=== PATIENT | male | born 1975 | race African-American/Black ===

== ENCOUNTER 2022-05-20 13:35 | Inpatient (IN) | payer BC ==
[~2022-05-20] VITALS: Ht 172.7 cm; Wt 94.8 kg
[~2022-05-20 13:35] MED LIST: LEVETIRACETAM (500MG) 1,000 MG in IV NS 0.9% 100 ML IV SCH
--- NOTE | 2022-05-20 14:06 | NUR ---
CALLED CODE STROKE
--- NOTE | 2022-05-20 14:09 | NUR ---
ACCUCHECK BLOOD SUGAR = 114
--- NOTE | 2022-05-20 14:09 | NUR ---
ESTABLISHED IV LINE LEFT AC 18G
--- NOTE | 2022-05-20 14:10 | NUR ---
PT TO CT VIA ACLS PROTOCALS.
--- NOTE | 2022-05-20 14:10 | NUR ---
PT TAKEN TO CT VIA ROCCO
[2022-05-20] MEDS ORDERED: LORAZEPAM INJ 2 MG/ML VIAL ONE (14:14)
[2022-05-20 14:15] LABS: BASOPHILS % (AUTO) 0.5 % (0.0-2.0); EOSINOPHILS % (AUTO) 0.7 % (0.0-6.0); HEMATOCRIT 35 % (39-51); HEMOGLOBIN 11.5 g/dL (13.5-17.5); LYMPHOCYTES # (AUTO) 0.3 K/uL (0.8-4.8); LYMPHOCYTES % (AUTO) 7.1 % (20.0-44.0); MEAN CORPUSCULAR HGB CONC 33 g/dl (31.0-36.0); MEAN CORPUSCULAR VOLUME 104 fL (80-96); MONOCYTES # (AUTO) 0.2 K/uL (0.1-1.30); MONOCYTES % (AUTO) 3.9 % (2.0-12.0); NEUTROPHILS # (AUTO) 3.6 K/uL (1.8-8.9); NEUTROPHILS % (AUTO) 87.8 % (43.0-81.0); PLATELET COUNT (AUTO) 212 K/uL (150-450); RED BLOOD CELL COUNT(AUTO) 3.34 MIL/uL (4.5-6.0); WHITE BLOOD COUNT (AUTO) 4.1 K/uL (4.3-11.0)
[2022-05-20 14:24] LABS: CALCIUM, SERUM 9.3 mg/dL (8.5-10.1); CARBON DIOXIDE 27 mmol/L (21-32); CHLORIDE 93 mmol/L (98-107); CREATININE 1.4 mg/dL (0.6-1.3); GLUCOSE 122 mg/dL (74-106); POTASSIUM 3.9 mmol/L (3.5-5.1); SODIUM SERUM 132 mmol/L (136-145); UREA NITROGEN, BLOOD 15 mg/dL (7-18)
--- NOTE | 2022-05-20 14:25 | NUR ---
CALLED [facility] [phone] Vianney ARROYO
[2022-05-20] MEDS ORDERED: PANT40TA2 PO (14:29)
[2022-05-20] MEDS ORDERED: IV CHEMO IV (14:29)
[2022-05-20] MEDS ORDERED: LEVO25TA7 PO (14:29)
[2022-05-20] MEDS ORDERED: APIX5TAB PO (14:29)
[2022-05-20] MEDS ORDERED: DEXA1TAB PO (14:29)
[2022-05-20] MEDS ORDERED: SULF1TAB48 PO (14:29)
[2022-05-20] MEDS ORDERED: LORAZEPAM INJ 2 MG/ML VIAL IV ONE (14:30)
[2022-05-20] MEDS ORDERED: LEVETIRACETAM (500MG) 1,000 MG in IV NS 0.9% 100 ML IV SCH (14:30)
--- NOTE | 2022-05-20 14:30 | NUR ---
DR. ARROYO SPEAKING WITH DR. ZARAGOZA.
[2022-05-20] MEDS ORDERED: LEVETIRACETAM (500MG) 1,000 MG in IV NS 0.9% 100 ML IV STA ×4 (14:34)
--- NOTE | 2022-05-20 15:05 | NUR ---
COVID SWAB TAKEN SENT TO LAB
--- NOTE | 2022-05-20 15:29 | NUR ---
RT RESPONDED TO RAPID RESPONSE IN CT ROOM. FOUND PT ON NONREBREATHER MASK. SPO2 100%. HR 109.
--- NOTE | 2022-05-20 16:00 | NUR ---
PT SPOKE TO NEUROLOGIST THRU CYBERNET
[2022-05-20] MEDS ORDERED: IV NS 0.9% 1,000 ML IV ONE (17:00)
--- NOTE | 2022-05-20 17:05 | NUR ---
[facility] CALLED DIRECTOR CONSUMER AFFAIRS PAGED.
--- NOTE | 2022-05-20 18:26 | NUR ---
room 308. pt report given to ella bolden
[2022-05-20] MEDS ORDERED: ACETAMINOPHEN 325 MG TABLET PO PRN (18:30)
[2022-05-20] MEDS ORDERED: MAGNESIUM HYDROXIDE 30 ML UDC PO PRN (18:30)
[2022-05-20] MEDS ORDERED: ZOLPIDEM TARTRATE 5 MG TABLET PO PRN (18:30)
[2022-05-20] MEDS ORDERED: Z GUARD REMEDY 4 OZ OINT TP PRN (18:30)
[2022-05-20] MEDS ORDERED: ONDANSETRON HCL/PF 4 MG/2 ML VIAL IVP PRN (18:30)
[2022-05-20] MEDS ORDERED: MAG HYDROX/AL HYDROX/SIMETH 30 ML UDC PO PRN (18:30)
--- NOTE | 2022-05-20 19:01 | NUR ---
PT TRANSFERRED TO 306 VIA [facility] ACLS PROTOCOL. WARM HANDOFF GIVEN TO AUGUSTUS WISDOM
--- NOTE | 2022-05-20 19:15 | NUR ---
received from day shift that the patient just arrived at the bedside instructed to stay as I have questions she agreed patient has a brain tumor that was in eemission for 10 years and now is evangelina started Chemo right c/w portacath not accessed patient confused will open eyes to name taking off his gown pulling off 02 n/c padded the side rails d/t dx seizures bed alarm on bed in low position will make frequent checks suction set up at the bedside d/t dx seizure eye glasses at the bedside shoes and pants and under wear and t shirt and a red plaid blanket
[2022-05-20 20:00] VITALS: BP 123/78
[2022-05-20] MEDS: IV NS 0.9% 1,000 ML IV PRN (20:42)
[2022-05-21] VITALS: BP 130/71
[2022-05-21] MEDS: LEVETIRACETAM (500MG) 1,000 MG in IV NS 0.9% 100 ML IV SCH ×2 (02:31→15:16)
[2022-05-21 04:00] VITALS: BP 107/65
--- NOTE | 2022-05-21 04:34 | NUR ---
Closing Notes: received from day shift from the ER lethargic but opened his eyes when name spoken was at his side and stated this is how he is after Chemo very tires. He is unable to comprehend what is being said to him He sets off the bed alarm when getting OOB not asking for assist, noted when he does this he wants to void standing. He voided 2 X this 12 hours 300 ml and 400 ml by getting OOB with 2 nurse assist and standing at the bedside. He is weak when OOB standing. no seizure activity this 12 hour rails padded will call his this AM to consent for the contrast of the MRI and the check LIST
[2022-05-21] MEDS: IV NS 0.9% 1,000 ML IV PRN (05:02)
[2022-05-21 06:21] LABS: BASOPHILS % (AUTO) 0.3 % (0.0-2.0); EOSINOPHILS % (AUTO) 0.5 % (0.0-6.0); HEMATOCRIT 33 % (39-51); HEMOGLOBIN 10.9 g/dL (13.5-17.5); LYMPHOCYTES # (AUTO) 0.2 K/uL (0.8-4.8); LYMPHOCYTES % (AUTO) 11.4 % (20.0-44.0); MEAN CORPUSCULAR HGB CONC 33 g/dl (31.0-36.0); MEAN CORPUSCULAR VOLUME 104 fL (80-96); MONOCYTES % (AUTO) 2.3 % (2.0-12.0); NEUTROPHILS # (AUTO) 1.8 K/uL (1.8-8.9); NEUTROPHILS % (AUTO) 85.5 % (43.0-81.0); PLATELET COUNT (AUTO) 183 K/uL (150-450); RED BLOOD CELL COUNT(AUTO) 3.12 MIL/uL (4.5-6.0); WHITE BLOOD COUNT (AUTO) 2.2 K/uL (4.3-11.0)
[2022-05-21 06:41] LABS: CALCIUM, SERUM 8.8 mg/dL (8.5-10.1); CREATININE 1.3 mg/dL (0.6-1.3); POTASSIUM 3.4 mmol/L (3.5-5.1)
--- NOTE | 2022-05-21 07:15 | NUR ---
RN OPENING NOTES RECEIVED PATIENT IN BED ASLEEP. ON RA, TOLERATING WELL. NO SOB OR CARDIAC DISTRESS NOTED. NO C/O OF PAIN AND DISCOMFORT AT THIS TIME. @ 75 ML/HR. SAFETY PRECAUTIONS IN PLACE: BED IN LOWEST, LOCKED IN POSITION, SIDERAILS UPx2, AND BRAKES ON. TABLE AND CALL LIGHT WITHIN REACH. ALL NEEDS MET AT THIS TIME, KEPT COMFORTABLE. WILL CONTINUE TO MONITOR .
[2022-05-21 07:20] LABS: THYROID STIMULATING HORMONE 3.778 uIU/mL (0.358-3.74)
[2022-05-21] MEDS ORDERED: PANTOPRAZOLE 40 MG TABLET.DR PO SCH (07:30)
[2022-05-21 07:58] VITALS: BP 102/75
[2022-05-21] MEDS: LEVOTHYROXINE SODIUM 25 MCG TABLET PO SCH (08:03)
[2022-05-21] MEDS: PANTOPRAZOLE 40 MG TABLET.DR PO SCH (08:04)
[2022-05-21] MEDS: DEXAMETHASONE 1 MG TABLET PO SCH (09:15)
[2022-05-21] MEDS: APIXABAN 5 MG TABLET PO SCH ×2 (09:15→17:34)
--- NOTE | 2022-05-21 11:27 | NUR ---
PEBBLE MILL OPERATOR NOTES PT IN BED, RESTING, EASY TO AROUSE, VERBALLY RESPONSIVE, SLEEPY, PT HAD MRI, TOLERATED WELL, ASSISTED WITH URINAL USE, IV FLUIDS INFUSING WELL, SEEN AND EXAMINED BY DR. CARTER, PLAN OF CARE DISCUSSED WITH PT AND TONA AT BEDSIDE, VERBALIZED UNDERSTANDING, PT TO BE SEEN BY DR. WONG THIS AFTERNOON, ALL NEEDS ATTENDED.
[2022-05-21] MEDS: POTASSIUM CL. PREMIX PERIPHER. 50 ML IV SCH ×2 (11:36→13:07)
[2022-05-21 11:53] LABS: BAND % (MANUAL) 16 % (0.0-5.0); LYMPHOCYTES % (MANUAL) 18 % (16-48); MONOCYTES % (MANUAL) 2 % (0-11.0); NEUTROPHILS % (MANUAL) 64 (42-76)
[2022-05-21 12:00] VITALS: BP 129/85
[2022-05-21] MEDS ORDERED: LEVE500T9 PO (13:48)
[2022-05-21] MEDS ORDERED: ONDANSETRON HCL/PF 8 MG in IV D5W 50 ML IVP PRN (14:00)
[2022-05-21] MEDS ORDERED: ONDANSETRON HCL/PF 4 MG/2 ML VIAL IVP PRN (14:00)
[2022-05-21] MEDS ORDERED: GADOTERATE MEGLUMINE 10 MMOL/20 ML VIAL IV ONE (14:48)
[2022-05-21 15:30] LABS: ALBUMIN 2.9 g/dL (3.4-5.0); BILIRUBIN,DIRECT 0.2 mg/dL (0.0-0.2); BILIRUBIN,TOTAL 0.6 mg/dL (0.2-1.0); TOTAL PROTEIN, SERUM 6.2 g/dL (6.4-8.2)
[2022-05-21] MEDS ORDERED: TEMO5CAP PO (15:31)
--- NOTE | 2022-05-21 15:33 | NUR ---
PAIRER/MED RECON PO CHEMO MEDICATION INFORMATION OBTAINED FROM THE PATIENT AND . BARBARA KENNEDY MADE AWARE WITH NEW ORDER TO CONT. PROVIDED MEDICATION SUPPLY FROM HOME AND WILL SENT TO THE PHARMACY. PRIMARY RN AWARE.
[2022-05-21 16:00] VITALS: BP 119/68
[2022-05-21] MEDS ORDERED: ONDANSETRON 4 MG TAB.RAPDIS PO PRN (16:30)
[2022-05-21] MEDS: LACTULOSE 10 G/15 ML UDC (PYXIS) PO SCH (17:32)
--- NOTE | 2022-05-21 18:41 | NUR ---
RN CLOSING NOTES PATIENT IN BED AWAKE AT THIS TIME. ON RA, TOLERATING WELL. NO SOB OR CARDIAC DISTRESS NOTED. NO C/O OF PAIN AND DISCOMFORT AT THIS TIME. SAFETY PRECAUTIONS IN PLACE: BED IN LOWEST, LOCKED IN POSITION, SIDERAILS UPx2, AND BRAKES ON. TABLE AND CALL LIGHT WITHIN REACH. ALL NEEDS MET AT THIS TIME, KEPT COMFORTABLE. ENDORSED TO INCOMING NOD.
[2022-05-21 20:00] VITALS: BP 109/68
[2022-05-21] MEDS: ONDANSETRON 4 MG TAB.RAPDIS PO SCH (20:40)
[2022-05-21] MEDS: IV D5/ 0.9% NACL 1,000 ML IV PRN (20:49)
[2022-05-21] MEDS ORDERED: TEMOZOLOMIDE PO SCH (21:00)
[2022-05-22] VITALS: BP 111/63
[2022-05-22] MEDS: LEVETIRACETAM (500MG) 1,000 MG in IV NS 0.9% 100 ML IV SCH (03:51)
[2022-05-22 04:00] VITALS: BP_SYST 111; BP_SYST 129; BP_DIAS 58; BP_DIAS 81
--- NOTE | 2022-05-22 06:18 | NUR ---
END OF SHIFT REPORT Patient in bed, Alert Oriented x1-2 Forgetful. Sinus rhythm in the Tele monitor HR 62. Left AC IV line intact, IV fluids infusing. Patient trying to get out from bed unassisted, frequently reoriented. No episode of Seizures throughout the shift, on Keppra IV. Denies pain. Stable on RA. Fall precaution maintained. Will endorse to oncoming RN.
--- NOTE | 2022-05-22 07:00 | NUR ---
ASSOCIATE PROFESSOR OF GEOGRAPHY OPENING NOTES: RECEIVED PT IN BED ASLEEP, EASILY AROUSED WITH STIMULI. A/O X 1-2 NO SOB OR CARDIAC DISTRESS NOTED. ON TELE MONITOR ATTACHED WITH CURRENT READING : SINUS RHYTHM @62 BPM. IV ACCESS ON LAC GAUGE 18 PATENT, INTACT AND INFUSING IV FLUIDS D5 NS 1L @ 75ML/HR. SFETY PRECAUTIONS MAINTAINEDD Addendum: 05/22/22 at 0758 by KATY SOOD RN OBED BURNS
--- NOTE | 2022-05-22 07:00 | NUR ---
WORK STUDY STUDENT OPENING NOTES: RECEIVED PT IN BED ASLEEP, EASILY AROUSED WITH STIMULI. A/O X 1-2 NO SOB OR CARDIAC DISTRESS NOTED. ON TELE MONITOR ATTACHED WITH CURRENT READING : SINUS RHYTHM @62 BPM. IV ACCESS ON LAC GAUGE 18 PATENT, INTACT AND INFUSING IV FLUIDS D5 NS 1L @ 75ML/HR. SAFETY PRECAUTIONS MAINTAINED: BED LOCKED AND IN LOWEST POSITION, BED ALARM ON. SIDE RAILS UP X 3 . CALL LIGHT IN EASY REACH FOR HELP.
[2022-05-22] MEDS: PANTOPRAZOLE 40 MG TABLET.DR PO SCH (07:30)
[2022-05-22] MEDS: LEVOTHYROXINE SODIUM 25 MCG TABLET PO SCH (07:30)
[2022-05-22 08:00] VITALS: BP 118/74
[2022-05-22] MEDS: ONDANSETRON 4 MG TAB.RAPDIS PO SCH (09:00)
[2022-05-22] MEDS: DEXAMETHASONE 1 MG TABLET PO SCH (09:32)
[2022-05-22] MEDS: LACTULOSE 10 G/15 ML UDC (PYXIS) PO SCH ×2 (09:32→16:01)
[2022-05-22] MEDS: APIXABAN 5 MG TABLET PO SCH ×2 (09:33→16:06)
[2022-05-22 10:13] LABS: BASOPHILS % (AUTO) 0.3 % (0.0-2.0); EOSINOPHILS % (AUTO) 0.9 % (0.0-6.0); HEMATOCRIT 30 % (39-51); HEMOGLOBIN 10.3 g/dL (13.5-17.5); LYMPHOCYTES # (AUTO) 0.2 K/uL (0.8-4.8); LYMPHOCYTES % (AUTO) 17.3 % (20.0-44.0); MEAN CORPUSCULAR HGB CONC 34 g/dl (31.0-36.0); MEAN CORPUSCULAR VOLUME 104 fL (80-96); MONOCYTES # (AUTO) 0.1 K/uL (0.1-1.30); MONOCYTES % (AUTO) 3.7 % (2.0-12.0); NEUTROPHILS # (AUTO) 1.1 K/uL (1.8-8.9); NEUTROPHILS % (AUTO) 77.8 % (43.0-81.0); PLATELET COUNT (AUTO) 191 K/uL (150-450); RED BLOOD CELL COUNT(AUTO) 2.93 MIL/uL (4.5-6.0)
[2022-05-22 10:41] LABS: WHITE BLOOD COUNT (AUTO) 1.4 K/uL (4.3-11.0)
[2022-05-22 10:51] LABS: ALBUMIN 2.8 g/dL (3.4-5.0); BILIRUBIN,DIRECT 0.1 mg/dL (0.0-0.2); BILIRUBIN,TOTAL 0.5 mg/dL (0.2-1.0); CALCIUM, SERUM 8.6 mg/dL (8.5-10.1); CREATININE 1.4 mg/dL (0.6-1.3); MAGNESIUM 2.2 mg/dL (1.8-2.4); PHOSPHORUS 2.8 mg/dL (2.5-4.9); POTASSIUM 3.1 mmol/L (3.5-5.1); TOTAL PROTEIN, SERUM 6.4 g/dL (6.4-8.2)
--- NOTE | 2022-05-22 10:54 | NUR ---
RN NOTES: SEEN BY DR CARTER. MADE AWARE ABOUT THE CRITICAL LEVELS WBC 1.4. PROCALCITONIN 3.04. NO ORDERS FOR NOW WILL MONITOR PT.
[2022-05-22 12:00] VITALS: BP 117/73
[2022-05-22] MEDS ORDERED: POTASSIUM CHLORIDE 20 MEQ POWDER PACKET PO SCH (16:00)
[2022-05-22] MEDS: IV D5/ 0.9% NACL 1,000 ML IV PRN (16:05)
[2022-05-22 16:30] LABS: BAND % (MANUAL) 17 % (0.0-5.0); BASOPHILS % (MANUAL) 0 % (0.0-2.0); EOSINOPHILS % (MANUAL) 0 % (0-4); LYMPHOCYTES % (MANUAL) 17 % (16-48); MONOCYTES % (MANUAL) 4 % (0-11.0); NEUTROPHILS % (MANUAL) 62 (42-76)
--- NOTE | 2022-05-22 18:47 | NUR ---
PRODUCT TESTER FIBERGLASS CLOSING NOTES: PT IN BED AWAKE. A/O X 1-2 NO SOB OR CARDIAC DISTRESS NOTED. ON TELE MONITOR ATTACHED WITH CURRENT READING : SINUS RHYTHM @70 BPM. IV ACCESS ON LAC GAUGE 18 PATENT, INTACT AND INFUSING IV FLUIDS D5 NS 1L @ 125ML/HR. NO EPISODES OF SEIZURE HAPPENED IN OUR SHIFT, PT REMAINED CALM. SAFETY PRECAUTIONS MAINTAINED: BED LOCKED AND IN LOWEST POSITION, BED ALARM ON. SIDE RAILS UP X 3 . CALL LIGHT IN EASY REACH FOR HELP.
--- NOTE | 2022-05-22 19:10 | NUR ---
RN NOTES: RECEIVED LYING ON BED, SIDE RAILS UP, PADDED ON THE SIDE, SAFETY AND SEIZURE PRECAUTION OBSERVED, A/OX 2, FORGETFUL AND CONFUSE AT TIME PER ENDORSEMENT, ORIENTED TO UNIT AND STAFF, MAKE SURE CALL LIGHT WITHIN EASY REACH, ALARM ON, URINAL AT BED SIDE, HIGH RISK FOR FALL, IVFD5%1/2NS AT 125 ML/HR ONGOING, IV SITE:lac G#18 INTACT AND PATENT, PENDING RESULTS TO BE FOLLOWED UP IN THE MORNING, ON CLOSE VISUAL CHECK. Addendum: 05/22/22 at 2046 by BALA REINA RN ADDED NOTES: ON TOPOGRAPHICAL ENGINEER SR-89.NO PAIN OR DISCOMFORT, NO SOB NOTED.
[2022-05-22 20:00] VITALS: BP 119/58
--- NOTE | 2022-05-22 20:20 | NUR ---
RN NOTES: - -TONA CALLED AWHILE AGO, GIVEN UPDATES REGARDING HER , KEPT HER CELL PHONE BESIDE HIM.HE IS TAKING A NAP IN BETWEEN.
[2022-05-22] MEDS: LEVETIRACETAM (250 MG) 250 MG TABLET PO SCH (21:05)
--- NOTE | 2022-05-22 21:44 | NUR ---
RN NOTES: CHECK AT FREQUENT INTERVALS, ASLEEP, MED COMPLIANT, NO SEIZURE NOTED, KEPT CALL LIGHT WITHIN EASY REACH.
--- NOTE | 2022-05-22 22:07 | NUR ---
RN NOTES: ASSISTED BY RN AND PERMANENT WAVER GOING TO THE BATHROOM, HE REFUSED TO USE THE URINAL, ABLE TO WALK WITH 2 PERSON ASSIST, WAGGLING GAIT, HE SAID HE HAS SLIGHT DIZZINESS WHEN HE RETURNED BACK TO BED,RN STAYED WITH HIM UNTIL HE WAS POSITIONED WELL, HE VERBALIZED HE FEEL BETTER, NO DIZZINESS WHEN HE LIE DOWN ON THE BED.
[2022-05-23] VITALS: BP_SYST 109; BP_SYST 154; BP_DIAS 62; BP_DIAS 64
[2022-05-23] MEDS: IV D5/ 0.9% NACL 1,000 ML IV PRN ×2 (02:18→11:32)
--- NOTE | 2022-05-23 02:19 | NUR ---
RN NOTES: -AROUND 0130 AWAKE, ASSISTED BY 2 PRODUCE SPECIALIST GOING TO THE BATHROOM, LOOKS CONFUSED, HE JUST WAKE UP, ORIENTED TO UNIT AND STAFF, HE HAD A BM, ASSISTED BACK TO HIS BED. -IVF CONSUME, STARTED A NEW BAG OF D5%1/2NS AT 125 ML/HR,STILL ASLEEP ON CLOSE VISUAL CHECK.
[2022-05-23 04:00] VITALS: BP_SYST 129; BP_SYST 148; BP_DIAS 70; BP_DIAS 81
--- NOTE | 2022-05-23 04:51 | NUR ---
RN NOTES: -AWAKE AT AROUND 0400 THEN HE GET UP, HIS IV CANNULA ON THE LEFT AC WAS ACCIDENTALLY PULLED OUT, RN ASSISTED HIM BACK TO BED, APPLY DRY DRESSING ON THE IV SITE AND EXPLAINED TO HIM WE NEED TO REINSERT ANOTHER IV CANNULA, HE AGREED. - IV CANNULA INSERTED ON THE LAC G#22, 1 ATTEMPT MADE WITH GOOD BACK FLOW, SEUCRED WITH TRANSPARENT DRESSING AND WRAP WITH KURLEX, IVF RESUMED.
--- NOTE | 2022-05-23 06:33 | NUR ---
RN NOTES: AWAKE, CONVERSANT, HIS CALLED AND CHECKED HIM, WILL ENDORSED TO F/U IF HE CAN BE DISCHARGE TODAY, LABS DONE IN THE MORNING, KEPT ON CLOSE WATCH,HAD BMX1 AND URINE X 3, IVF CONTINUED,NO SOB,NO PAIN OR DISCOMFORT, ENDORSED FOR CONTINUITY OF CARE.
--- NOTE | 2022-05-23 07:00 | NUR ---
INFORMATION MANAGER OPENING NOTES: RECEIVED PT IN BED AWAKE,CALM, A/O X 1-2 NO SOB OR CARDIAC DISTRESS NOTED. ON TELE MONITOR ATTACHED WITH CURRENT READING : SINUS RHYTHM @62 BPM. IV ACCESS ON LAC GAUGE 18 PATENT, INTACT AND INFUSING IV FLUIDS D5 NS 1L @ 75ML/HR. SAFETY PRECAUTIONS MAINTAINED: BED LOCKED AND IN LOWEST POSITION, BED ALARM ON. SIDE RAILS UP X 3 . CALL LIGHT IN EASY REACH FOR HELP. WILL MONITOR FOR ANY SIGNIFICANT CHANGES.
[2022-05-23 07:20] LABS: HEMOGLOBIN 9.7 g/dL (13.5-17.5); MONOCYTES # (AUTO) 0.1 K/uL (0.1-1.30)
[2022-05-23] MEDS: LEVOTHYROXINE SODIUM 25 MCG TABLET PO SCH (07:40)
[2022-05-23] MEDS: PANTOPRAZOLE 40 MG TABLET.DR PO SCH (07:40)
[2022-05-23 08:00] LABS: CALCIUM, SERUM 8.5 mg/dL (8.5-10.1); CREATININE 1.2 mg/dL (0.6-1.3); MAGNESIUM 2.4 mg/dL (1.8-2.4); PHOSPHORUS 2.8 mg/dL (2.5-4.9); POTASSIUM 3.7 mmol/L (3.5-5.1)
[2022-05-23 08:17] LABS: ALBUMIN 2.7 g/dL (3.4-5.0); BILIRUBIN,DIRECT 0.1 mg/dL (0.0-0.2); BILIRUBIN,TOTAL 0.3 mg/dL (0.2-1.0); TOTAL PROTEIN, SERUM 6.5 g/dL (6.4-8.2)
[2022-05-23] MEDS: DEXAMETHASONE 1 MG TABLET PO SCH (08:32)
[2022-05-23] MEDS: LACTULOSE 10 G/15 ML UDC (PYXIS) PO SCH (08:32)
[2022-05-23] MEDS: ONDANSETRON 4 MG TAB.RAPDIS PO SCH ×2 (08:33→09:00)
[2022-05-23] MEDS: APIXABAN 5 MG TABLET PO SCH (08:34)
[2022-05-23] MEDS: LEVETIRACETAM (250 MG) 250 MG TABLET PO SCH (08:37)
[2022-05-23 08:39] LABS: BASOPHILS % (AUTO) 0.1 % (0.0-2.0); EOSINOPHILS % (AUTO) 1.9 % (0.0-6.0); HEMATOCRIT 29 % (39-51); LYMPHOCYTES # (AUTO) 0.3 K/uL (0.8-4.8); MEAN CORPUSCULAR HGB CONC 34 g/dl (31.0-36.0); MEAN CORPUSCULAR VOLUME 104 fL (80-96); MONOCYTES % (AUTO) 6.7 % (2.0-12.0); NEUTROPHILS % (AUTO) 72.3 % (43.0-81.0); PLATELET COUNT (AUTO) 203 K/uL (150-450); RED BLOOD CELL COUNT(AUTO) 2.73 MIL/uL (4.5-6.0)
[2022-05-23 08:44] LABS: WHITE BLOOD COUNT (AUTO) 1.3 K/uL (4.3-11.0)
[2022-05-23 11:51] LABS: BILIRUBIN,URINE NEGATIVE (NEGATIVE); COLOR,URINE YELLOW (YELLOW); LEUKOCYTE ESTERASE ,URINE NEGATIVE (NEGATIVE); NITRITE, URINE NEGATIVE (NEGATIVE); PH,URINE 6.5 (5.0-8.0); PROTEIN,URINE TRACE mg/dl (NEGATIVE); UGLUCOSE NEGATIVE (NEGATIVE); UROBILINOGEN,URINE 0.2 EU/dL (0.2)
[2022-05-23 12:21] LABS: BACTERIA,URINE None seen /HPF (None Seen); RBC,URINE 0-2 /HPF (0-2); SQUAMOUS EPITHELIAL CELL,UR Rare /HPF (None Seen); WBC,URINE 0-2 /HPF (0-3)
--- NOTE | 2022-05-23 13:40 | NUR ---
PRIVATE DUTY AIDE NOTES: PATIENT DC HOME ACCOMPANIED BY , TONA. PT ALERT AND ORIENTED X 2 AND ABLE TO VERBALIZED NEEDS. PT DENIES PAIN. REMOVED IV ACCESS AND IDENTIFICATION VILLA. BAGGAGE SMASHER REMOVED AND GIVEN TO US JUAN. DISCHARGE INSTRUCTIONS/ PACKET GIVEN TO AND VERBALIZED UNDERSTANDING. PT LEFT THE UNIT STABLE , AUGUSTIN GRAVES WHEELED PT IN THE LOBBY. ALL BELONGINGS TAKEN WITH THE PT. NO MORE HOME MEDS LEFT FROM THE PHARMACY. MADE AWARE.
[2022-05-24 04:28] LABS: EOSINOPHILS % (MANUAL) 3 % (0-4); LYMPHOCYTES % (MANUAL) 22 % (16-48); MONOCYTES % (MANUAL) 6 % (0-11.0); NEUTROPHILS % (MANUAL) 69 (42-76)
== END 2022-05-23 13:45 | disposition home health service (06) | DRG 100 ==
LOC: ER 13:45 → TELE 18:27
PROVIDERS: ADMIT Student in an Organized Health Care Education/Training Program; ATTEND Registered Nurse
DX: R56.9 Unspecified convulsions (principal); G93.41 Metabolic encephalopathy; I61.9 Nontraumatic intracerebral hemorrhage, unspecified; D68.59 Other primary thrombophilia; C71.9 Malignant neoplasm of brain, unspecified; E87.1 Hypo-osmolality and hyponatremia; E72.20 Disorder of urea cycle metabolism, unspecified; N17.9 Acute kidney failure, unspecified; Z85.841 Personal history of malignant neoplasm of brain; E03.9 Hypothyroidism, unspecified; Z20.822 Contact with and (suspected) exposure to COVID-19; Z86.711 Personal history of pulmonary embolism; Z92.21 Personal history of antineoplastic chemotherapy; Z79.01 Long term (current) use of anticoagulants; E87.6 Hypokalemia; T50.995A Adverse effect of other drugs, medicaments and biological substances, initial encounter; Y92.009 Unspecified place in unspecified non-institutional (private) residence as the place of occurrence of the external cause; Z86.718 Personal history of other venous thrombosis and embolism; Z98.890 Other specified postprocedural states
CPT/HCPCS: 36415; 70450-TC; 70553-TC; 71045-TC; 80048-TC; 80076-TC; 81001; 82140-TC; 82533; 82607-TC; 82962-TC; 83735-TC; 84100-TC; 84439-TC; 84443-TC; 84484-TC; 85025-TC; 85730-TC; 87040-TC; 87081-TC; 92526; 92611-TC; 93307-TC; 95819-TC; 97110-TC; 97530-TC; A9575; C9803; G0378; J1953; J2060; J3480; J3490; J7030; J7042; J8540; Q0162